=== PATIENT | female | born 1990 | race Caucasian/White ===

== ENCOUNTER → 2016-09-30 18:00 | Emergency (ER) | payer OTHER ==
[~2016-09-30 18:00] MED LIST: Fluticasone NASAL SPRAY 50MCG* 16 gm SPRAY BTL BOTH NARES ONE; NS 0.9% 1000 ML* 1,000 ML IV ONE
[2016-09-30 19:01] LABS: Hematocrit 41 % (35-47); Hemoglobin 13.8 g/dl (12.0-16.0); Mean Corpuscular HGB Conc 34 g/dl (31-36); Mean Corpuscular Hemoglobin 31 pg (27-31); Mean Corpuscular Volume 91 fL (80-97); Mean Platelet Volume 7 um3 (7.4-10.4); Red Blood Count 4.46 10^6/ul (4.0-5.4); Red Cell Distribution Width 13 % (10.5-15); White Blood Count 11.5 10^3/ul (3.5-10.8)
--- NOTE | 2016-09-30 19:07 | ED ---
Complex/Multi-Sys Presentation - HPI Summary HPI Summary: 26F presents with dizziness today. She is taking prozac which she started 2 months ago. She has a cough that develop two days ago with sinus congestion. She took nyquil and mucinex to treat the cold taking 3 dosages of each over the past two days. She states she feels disorientated. She states it is a lightheaded feeling not a vertigo feeling. She denies any chest pain or shortness of breath. She denies any nausea or vomiting. She denies any fever or muscle aches. She states that her blood pressure is higher than what it normal is. She denies any medical conditions beside the depression. She was sent over from [place] for observation due to interaction between prozac and nyquill. She states she has never had these symptoms before. - History Of Current Complaint Chief Complaint: EDGeneral Time Seen by Provider: 09/30/16 18:36 - Allergies/Home Medications Allergies/Adverse Reactions: Allergies Allergy/AdvReac Type Severity Reaction Status Date / Time Amoxicillin Allergy Hives Verified 09/30/16 18:14 Cephalexin Allergy Hives Verified 09/30/16 18:14 PMH/Surg Hx/FS Hx/Imm Hx Endocrine/Hematology History: Denies: Hx Anticoagulant Therapy Respiratory History: Denies: Hx Asthma Psychiatric History: Reports: Hx Depression Infectious Disease History: No Infectious Disease History: Denies: Traveled Outside the [place] in Last 30 Days - Family History Known Family History: Positive: Hypertension - Social History Alcohol Use: Weekly Substance Use Type: Reports: None Smoking Status (MU): Never Smoked Tobacco Review of Systems Negative: Fever Negative: Chest Pain Negative: Shortness Of Breath Neurological: Other - dizziness All Other Systems Reviewed And Are Negative: Yes Physical Exam Triage Information Reviewed: Yes Vital Signs On Initial Exam: Initial Vitals Temp Pulse Resp BP Pulse Ox 98.9 F 72 16 150/92 99 09/30/16 18:16 09/30/16 18:16 09/30/16 18:16 09/30/16 18:16 09/30/16 18:16 Vital Signs Reviewed: Yes Appearance: Positive: Well-Appearing Skin: Positive: Warm, Dry Head/Face: Positive: Normal Head/Face Inspection Eyes: Positive: Normal, EOMI, DACIA, Conjunctiva Clear ENT: Positive: Normal ENT inspection, Pharynx normal, TMs normal Respiratory/Lung Sounds: Positive: Clear to Auscultation, Breath Sounds Present Cardiovascular: Positive: Normal, RRR Neurological: Positive: Sensory/Motor Intact, Alert, Oriented to Person Place, Time, CN Intact II-III, Heel to Toe, Finger to Nose - [place] Coma Scale Best Eye Response: 4 - Spontaneous Best Motor Response: 6 - Obeys Commands Best Verbal Response: 5 - Oriented Coma Scale Total: 15 Diagnostics - Vital Signs Vital Signs Temp Pulse Resp BP Pulse Ox 09/30/16 18:41 64 99 09/30/16 18:40 132/79 09/30/16 18:39 147/88 09/30/16 18:16 98.9 F 72 16 150/92 99 - Laboratory Lab Results: Lab Results 09/30/16 Range/Units 18:55 WBC 11.5 H (3.5-10.8) 10^3/ul RBC 4.46 (4.0-5.4) 10^6/ul Hgb 13.8 (12.0-16.0) g/dl Hct 41 (35-47) % MCV 91 (80-97) fL MCH 31 (27-31) pg MCHC 34 (31-36) g/dl RDW 13 (10.5-15) % Plt Count 311 (150-450) 10^3/ul MPV 7 L (7.4-10.4) um3 Neut % (Auto) 70.6 (38-83) % Lymph % (Auto) 20.6 L (25-47) % [place] % (Auto) 6.1 (1-9) % Eos % (Auto) 1.7 (0-6) % Baso % (Auto) 1.0 (0-2) % Absolute Neuts (auto) 8.1 H (1.5-7.7) 10^3/ul Absolute Lymphs (auto) 2.4 (1.0-4.8) 10^3/ul Absolute Monos (auto) 0.7 (0-0.8) 10^3/ul Absolute Eos (auto) 0.2 (0-0.6) 10^3/ul Absolute Basos (auto) 0.1 (0-0.2) 10^3/ul Absolute Nucleated RBC 0.01 10^3/ul Nucleated RBC % 0 Result Diagrams: 09/30/16 18:55 05/17/17 18:55 Lab Statement: Any lab studies that have been ordered have been reviewed, and results considered in the medical decision making process. - EKG No standard instances Cardiac Rate: NL EKG Rhythm: Sinus Rhythm ST Segment: Normal Re-Evaluation - Re-Evaluation First Eval Re-Evaluation Time: 20:03 Change: Improved Comment: feeling better after fluids Complex Multi-Symp Course/Dx Course Of Treatment: 26F presents with potential interaction between prozac and mucinex and nyquil that was taking for a cold. Says that she feels lightheaded and disorientated. She was seen at [place] and transferred her for observation. on exam vitals stable. normal neuro exam. discussed with dr maria and is not showing any signs of serotonin syndrome so will get some basic lab work and give some fluids. ekg normal. wbc 11.5 may be due to cold. urine grew bacteria but patient denies any UTI symptoms. patient felt better with fluids. told to stop nyquil. looked up sudafed and appears to not have serotonin affect so said could try it. gave flonase. patient understands and agrees with plan - Diagnoses Differential Diagnoses/HQI/PQRI: Sepsis, Urinary Tract Infection, Other - medication reaction Provider Diagnoses: Dizziness, Medication reaction Discharge - Discharge Plan Condition: Good Disposition: HOME Patient Education Materials: Fluoxetine (By mouth) Referrals: [facility] [Primary Care Provider] - Additional Instructions: Stop taking mucinex and nyquil Take Flonase one spray each nostril daily Use nasal saline in nose for nasal congestion Drink plenty of fluids Return to ED if develop fever, racing heart, or any new or worsening symptoms
[2016-09-30 19:17] LABS: ALT 14 U/L (7-52); AST 22 U/L (13-39); Albumin 4.7 g/dL (3.2-5.2); Alkaline Phosphatase 40 U/L (34-104); Anion Gap 7 mmol/L (2-11); BUN/Creatinine Ratio 13.3 (8-20); Blood Urea Nitrogen 14 mg/dL (6-24); CO2 Carbon Dioxide 27 mmol/L (22-32); Calcium 9.5 mg/dL (8.6-10.3); Chloride 103 mmol/L (101-111); Creatine Kinase 166 U/L (10-223); EGFR African American 80.3 (>60); EGFR Non-African American 62.4 (>60); Globulin 2.7 g/dL (2-4); Glucose 95 mg/dL (70-100); Potassium 4.2 mmol/L (3.5-5.0); Sodium 137 mmol/L (133-145); Total Protein 7.4 g/dL (6.4-8.9)
[2016-09-30 19:31] LABS: Urine Bacteria 2+ (Absent); Urine Bilirubin Negative (Negative); Urine Glucose Negative (Negative); Urine Nitrite Negative (Negative)
[2016-09-30 19:47] LABS: TSH (Thyroid Stimulating Horm) 2.71 mcIU/mL (0.34-5.60)
[2016-09-30 21:11] VITALS: BP 134/79
== END | disposition home or self-care (01) ==
LOC: ED 18:00
DX: T43.225A Adverse effect of selective serotonin reuptake inhibitors, initial encounter (principal); R42 Dizziness and giddiness; Y92.9 Unspecified place or not applicable
CPT/HCPCS: 36415; 80053; 81003; 81015; 82550; 83605; 83735; 84443; 84702; 85025; 87086; 93005; 96374; 99282